=== PATIENT | female | born 2000 | race Caucasian/White ===

== ENCOUNTER 2018-08-07 00:03 | Emergency (ER) | payer OTHER ==
[~2018-08-07] VITALS: Ht 167.6 cm; Wt 58.4 kg
[2018-08-07] MEDS ORDERED: BCP (00:07)
[2018-08-07] MEDS ORDERED: LIDOCAINE-MPF 2%, 2ML ONE (00:25)
[2018-08-07] MEDS ORDERED: LIDOCAINE-MPF 1%, 5ML INFIL ONE (00:30)
[2018-08-07] MEDS ORDERED: BACITRACIN ZINC OINT 500U/GM, 0.9 GM ONE (00:59)
[2018-08-07 01:20] VITALS: BP 118/70
== END 2018-08-07 01:52 | disposition home or self-care (01) ==
LOC: ED 00:33
DX: S01.311A Laceration without foreign body of right ear, initial encounter (principal); W18.39XA Other fall on same level, initial encounter; Y93.89 Activity, other specified; Y99.8 Other external cause status; Y92.410 Unspecified street and highway as the place of occurrence of the external cause
CPT/HCPCS: 12051; 99284

== ENCOUNTER 2019-12-01 22:53 | Emergency (ER) | payer OTHER ==
[~2019-12-01] VITALS: Ht 167.6 cm; Wt 64.6 kg
[~2019-12-01 22:53] MED LIST: BCP
[2019-12-01] MEDS ORDERED: DIPHENHYDRAMINE 50 MG/ML, 1ML ONE (23:59)
[2019-12-02] MEDS ORDERED: FAMOTIDINE 20 MG/2 ML IVPush ONE
[2019-12-02] MEDS ORDERED: FAMOTIDINE 20 MG/2 ML ONE
[2019-12-02] MEDS ORDERED: DIPHENHYDRAMINE 50 MG/ML, 1ML IVPush ONE
[2019-12-02] MEDS ORDERED: methylPREDNISolone SOD SUCC 125 MG/2 ML IVPush ONE
[2019-12-02] MEDS ORDERED: methylPREDNISolone SOD SUCC 125 MG/2 ML ONE
[2019-12-02 00:42] VITALS: BP 101/52
== END 2019-12-02 01:12 | disposition home or self-care (01) ==
LOC: ED 12-02 00:10
DX: L50.0 Allergic urticaria (principal); F17.200 Nicotine dependence, unspecified, uncomplicated
CPT/HCPCS: 96374; 96375; 99283; J1200; J2930; J3490